=== PATIENT | female | born 1970 | race Caucasian/White ===

== ENCOUNTER 2022-10-19 14:29 | Emergency (ER) | payer BC, SELFPAY ==
[2022-10-19 14:31] VITALS: BP 178/78; PULSE 104; RESP 16; TEMP 36.8; O2SAT 99; BMI 45.7
[2022-10-19 15:31] LABS: Basophils % 0.3 % (0.1-2.0); Chloride 103 mmol/L (98-107); Eosinophils # 0.1 K/mm3 (0.0-0.4); Eosinophils % 1.3 % (0.1-12.0); Hematocrit 40.8 % (37.0-47.0); Hemoglobin 13.2 g/dL (12.2-16.2); Lymphocytes # 2.5 K/mm3 (0.7-4.5); Lymphocytes % 27.8 % (10-50); Mean Corpuscular HGB Conc 32.2 g/dL (31.8-35.4); Mean Corpuscular Hemoglobin 30.2 pg (27.0-31.2); Mean Corpuscular Volume 93.5 fl (81-99); Mean Platelet Volume 8.9 fl (7.4-10.4); Monocytes # 0.6 K/mm3 (0.1-1.0); Monocytes % 6.5 % (1.7-9.3); Neutrophils # 5.7 K/mm3 (1.8-7.8); Platelet Count 370 K/mm3 (142-424); Red Blood Count 4.37 M/mm3 (4.20-5.40); Red Cell Distribution Width 13.7 % (11.5-17.5); Sodium 140 mmol/L (136-145); White Blood Count 8.8 K/mm3 (4.8-10.8)
[2022-10-19 15:33] LABS: Blood Urea Nitrogen 15 mg/dl (7-17); Creatinine Clearance Estimated 73 mL/min (50-200); Estimated Glomerular Filt Rate 75 ml/min (>60); GFR (African American) 91 ML/MIN (>60)
[2022-10-19 15:34] LABS: Alanine Aminotransferase 32 U/L (12-78); Albumin Level 4.4 g/dl (3.5-5.0); Albumin/Globulin Ratio 1.2 (1.1-1.8); Alkaline Phosphatase 76 U/L (38-126); Aspartate Amino Transferase 32 U/L (14-36); Bilirubin,Total 0.4 mg/dl (0.2-1.3); Calcium 9.2 mg/dl (8.4-10.2); Carbon Dioxide 28 mmol/L (22.0-30.0); Globulin 3.8 g/dL (1.3-3.2); Glucose 126 mg/dl (74-100); Total Protein,Serum 8.2 g/dl (6.3-8.2)
--- NOTE | 2022-10-19 15:47 | HMH.EDGENADL ---
Discharge Plan Disposition Patient Disposition: Home, Self-Care Condition: Fair Chief Complaint: Dizziness Referrals Follow up/Referrals: Maite Brian DO [Primary Care Provider] - See instructions Clinical Impressions Clinical Impression: Nystagmus Instructions Patient Instructions: Vertigo Discharge ED Provider: Jeromy Lowe General Adult HPI General Chief complaint: Dizziness Stated complaint: dizzy, weakness, rapid HR Time Seen by Provider: 10/19/22 15:00 Mode of Arrival: Ambulatory Source of Information: Patient Limitations: No Limitations Description of Symptoms (Recalled from ER Triage Doc. by RN): pt to the ED with complaints of not feeling right pt reports she has been having this sensation intermittenly since august and has been seen by her PCP and [place] [facility] with no definative diagnosis. pt denies any chest pain or SOB at this time. pt reports she is supposed to see her ENT tomorrow for intermitten dizziness due to fluid on her ears. History of Present Illness HPI narrative: This is a 52-year-old female who is complaining of dizziness and not feeling right for the past 2 months patient has had multiple CAT scans of her entire body done at [facility] all which were negative. Patient is scheduled to have an appointment with her ENT tomorrow. Patient came to the ER today because she wants to know what is wrong . Related Data Allergies Allergy/AdvReac Type Severity Reaction Status Date / Time No Known Allergies Allergy Verified 10/19/22 14:58 [facility] Disclaimer: The information contained in this section may have been updated after the patient was seen, as this information can be updated by other users. Social History Smoking Status: Current every day smoker alcohol intake: former current occupational status: employed Travel in the last 8 weeks: None ROS Obtained: Yes All systems reviewed & no additional complaints except as documented Skin no rash or lesions HEENT no runny nose sore throat Pulmonary no cough or shortness of breath Cardiovascular no chest pain pressure heaviness GI no abdominal pain nausea or vomiting no dysuria pyuria hematuria Musculoskeletal no neck or back pain Neuro see HPI Endocrine no polydipsia polyuria or polyphasia Psych no SI or HI The rest of the systems were reviewed and found to be negative Physical Exam Narrative Physical exam: Skin: Warm and dry HEENT: Normocephalic atraumatic extract muscles are intact pupils are equal and reactive to light Neck: Supple nontender Lungs: Clear to auscultation Heart: Regular rate and rhythm Abdomen: NABS soft nontender Extremities: No clubbing cyanosis or edema Neurologic: No unilateral weakness or numbness cranial nerves remarkable for horizontal nystagmus with the fast component to the left. Lymphatic: No cervical or inguinal adenopathy Musculoskeletal: No tenderness of the dorsal or lumbar spine Psych: No SI or HI General General appearance: alert Respiratory Respiratory exam: Present normal lung sounds bilaterally Cardiovascular Cardiovascular exam: Present regular rate Neurological Exam Neurological exam: Present alert Medical Decision Making Alexandre Inquiry Pt receiving controlled substance: No Vital Signs: 10/19/22 14:31 Temperature 98.3 F Temperature Source Oral Pulse Rate [Left Radial] 104 H Respiratory Rate 16 Blood Pressure [Right Arm] 178/78 H Blood Pressure Mean [Right Arm] 111 Blood Pressure Source [Right Arm] Automatic Cuff Blood Pressure Position [Right Arm] Sitting 02 Sat by Pulse Oximetry 99 Oxygen Delivery Method Room Air Lab Data Lab Results 10/19/22 14:53: WBC 8.8, RBC 4.37, Hgb 13.2, Hct 40.8, MCV 93.5, MCH 30.2, MCHC 32.2, RDW 13.7, Plt Count 370, MPV 8.9, Neut % (Auto) 64.0, Lymph % (Auto) 27.8, [place] % (Auto) 6.5, Eos % (Auto) 1.3, Baso % (Auto) 0.3, Neut # (Auto) 5.7, Lymph # (Auto) 2.5, [place] # (Auto) 0.6, Eos # (Auto) 0.1, Baso # (Auto
[2022-10-19 16:00] VITALS: BP 123/80; PULSE 86; RESP 18; TEMP 36.8; O2SAT 99
== END 2022-10-19 16:05 | disposition home or self-care (01) ==
PROVIDERS: Emergency Provider Emergency Medicine; PCP Student in an Organized Health Care Education/Training Program
DX: H55.00 Unspecified nystagmus (principal); R42 Dizziness and giddiness; F17.200 Nicotine dependence, unspecified, uncomplicated
CPT/HCPCS: 80053; 85025; 99283